=== PATIENT | female | born 1985 | race Caucasian/White ===

== ENCOUNTER 2024-02-12 07:36 | Outpatient (RCR) | payer MEDICARE, SELFPAY ==
[2024-02-14 14:10] LABS: Protein C-Functional 113 % (73-180); Protein S, Free 118 % (61-136); Protein S, Total 119 % (60-150); Protein S-Functional 110 % (63-140)
[2024-02-15 14:09] LABS: APTT 24.6 sec (.); Prothrombin Time 10.4 sec (.); Thrombin Time 17.8 sec (.)
== END 2024-02-26 23:59 | disposition home or self-care (01) ==
LOC: INF 07:36
PROVIDERS: PCP Nurse Practitioner Adult Health; Visit Provider Internal Medicine Hematology & Oncology
DX: I63.311 Cerebral infarction due to thrombosis of right middle cerebral artery (principal)
CPT/HCPCS: 36415; 81241; 85210; 85302; 85303; 85305; 85306; 85597; 85598; 85610; 85613; 85670; 85730; 85732; 86146; 86147; 86148; G0463

== ENCOUNTER 2024-03-11 07:41 | Outpatient (RCR) | payer MEDICARE, SELFPAY | END 2024-03-28 23:59 | disposition home or self-care (01) | LOC: INF 07:41 | PROVIDERS: PCP Nurse Practitioner Adult Health; Visit Provider Internal Medicine Hematology & Oncology | DX: R79.1 Abnormal coagulation profile (principal); I69.954 Hemiplegia and hemiparesis following unspecified cerebrovascular disease affecting left non-dominant side; Z90.49 Acquired absence of other specified parts of digestive tract; Z87.891 Personal history of nicotine dependence | CPT/HCPCS: G0463 ==